=== PATIENT | male | born 1970 | race Caucasian/White ===

== ENCOUNTER 2022-12-25 09:23 | Outpatient (OUT) | payer OTHER, SELFPAY ==
[2022-12-25 10:07] LABS: Basophils Absolute Auto 0.1 10^3/uL (0.0-0.1); Basophils Percent Auto 1.3 % (0.2-2.0); Eosinophils Absolute Auto 0.4 10^3/uL (0.0-0.7); Eosinophils Percent Auto 6.3 % (0.9-7.0); Hematocrit 45.1 % (42.0-54.0); Hemoglobin 15.1 g/dL (14.0-18.0); Immature Granulocytes Abs Auto 0.01 10^3/uL (0.00-0.03); Immature Granulocytes Pct Auto 0.2 % (0.0-0.5); Lymphocytes Absolute Auto 2.2 10^3/uL (1.2-3.8); Lymphocytes Percent Auto 38.8 % (20.5-60.0); Mean Corpuscular HGB Conc 33.5 g/dL (29.9-35.2); Mean Corpuscular Hemoglobin 30.6 pg (25.9-34.0); Mean Corpuscular Volume 91.3 fL (80.0-94.0); Mean Platelet Volume 11.1 fL (9.5-13.5); Monocytes Absolute Auto 0.5 10^3/uL (0.3-0.8); Monocytes Percent Auto 9.5 % (1.7-12.0); Neutrophils Absolute Auto 2.5 10^3/uL (1.4-6.5); Neutrophils Percent Auto 43.9 % (43.0-75.0); Platelet Count 237 10^3/uL (150-450); Red Blood Count 4.94 10^6/uL (4.70-6.10); Red Cell Distribution Width 12.9 % (11.0-15.0); White Blood Count 5.6 10^3/uL (4.0-11.0)
[2022-12-25 10:17] LABS: Alanine Aminotransferase 40 U/L (16-63); Albumin Globulin Ratio 1.4; Alkaline Phosphatase 66 U/L (46-116); Aspartate Amino Transferase 21 U/L (15-37); BUN Creatinine Ratio 17.4; Bilirubin Total 0.5 mg/dL (0.2-1.0); Calcium 8.6 mg/dL (8.5-10.1); Carbon Dioxide 28.4 mmol/L (21.0-32.0); Chloride 105 mmol/L (98-107); Chol HDL Ratio 5.7; Cholesterol 264 mg/dL (<=200); Estimated GFR (African America >60 (>=60); Estimated GFR (Non-African Ame >60 (>=60); Globulin 2.9 g/dL; Glucose 97 mg/dL (74-106); HDL Cholesterol 46 mg/dL (40-60); Potassium 4.4 mmol/L (3.5-5.1); Sodium 142 mmol/L (136-145); Total Protein 6.9 g/dL (6.4-8.2); Triglycerides 106 mg/dL (<=150); VLDL CHOLESTEROL 21.2 mg/dL
[2022-12-25 10:37] LABS: Prostate Specific Antigen Scrn 0.99 ng/mL (<=4.00)
== END 2022-12-25 09:24 | disposition home or self-care (01) ==
LOC: LAB 09:27
PROVIDERS: PCP Family Medicine; Visit Provider Family Medicine
DX: Z00.00 Encounter for general adult medical examination without abnormal findings (principal); Z12.5 Encounter for screening for malignant neoplasm of prostate
CPT/HCPCS: 36415; 80053; 80061; 85025; G0103

== ENCOUNTER 2023-07-11 12:59 | Outpatient (OUT) | payer OTHER, SELFPAY ==
--- NOTE | 2023-07-11 | US_ITS ---
The [address] [address] Patient Name: YOLA HOLLAND MRN: [id number] date: 1970 Sex: M Assigned Patient Location: US Current Patient Location: Accession/Order Number: [id number] Exam Date: 07/11/2023 13:05 Report Date: 07/13/2023 12:03 At the request of: MARICARMEN LONDON Procedure: US thyroid EXAMINATION: US thyroid HISTORY: OTHER SPECIFIED DISORDERS OF THYROID E07.89 ; palpable lump COMPARISON: No relevant comparison available. FINDINGS: RIGHT LOBE: Normal size and echotexture. Lobe size: 4.4 x 1.8 x 1.8 cm LEFT LOBE: Normal size and echotexture. Lobe size: 3.9 x 1.5 1.4 cm ISTHMUS: Normal size and echotexture. Thickness: 2 mm OTHER: Within the upper anterior right neck within the subcutaneous fat is a 3.9 x 3.2 x 0.8 cm isoechoic thinly encapsulated mass without appreciable internal blood flow. US/US thyroid IMPRESSION: 1. The patient's palpable lump appears to correspond to a lipoma within the subcutaneous fat. Ultrasound-guided tissue sampling could be performed if clinically indicated. 2. Unremarkable thyroid gland. TI-RADS 1: Normal thyroid gland. No focal lesion. Electronically authenticated by: FREDRICK BYRNE Date: 07/13/2023 12:03
--- OUTSIDE RECORDS SUMMARY | 2023-07-11 13:01 | XMS_ITS | CCD ---
Author Organization [facility] Inform ion [facility] Care Team Providers Care Volunteer Manager Name Role Phone SHAIKH Jose JEAN Admitting Unavailable SHAIKH Jose JEAN Attending Unavailable DR ANDRIA SLATER Primary Care Unavailable SHAIKH Jose JEAN Consulting Unavailable Nirmal Scott Attending Unavail able Nirmal Scott Admitting Unavail able Provider, None Primary Care Unavailable Andria Slater Problems Problem Classification Problem Date Documented Da te Episodic/Chronic Other screening for suspected conditions (not mental disorders or infectious disease) (1 source) Encounter for screening for malignant neoplasm of prostate Episodic Thyroid disorders (2 sources) Mass of thyroid gland; Translations: [Other specified disorders of thyroid] 07-09-2023 Episodic Results Test Name Value Interpretation Reference Range Facil ity GLYCOHEMOGLOBIN A1Con 2021 ADA RECOMMENDATION SEE BELOW Normal [facility] Comment on above: Result Comment: ADA RECOMMENDED LIMIT 4.0 - 6.0 ADA THERAPEUTIC TARGET < 7.0 ACTION SUGGESTED > 7.0 Performed By: #### A 1C #### [facility] [address] [address] [address] Ivan Dave Glucose [Mass/Vol] 111 mg/dL Normal [facility] Comment on above: Performed By: #### A 1C #### [facility] [address] [address] [address] Ivan Dave HbA1c (Bld) [Mass fraction] 5.5 % Normal 4.5-6.2 [facility] Comment on above: Performed By: #### A 1C #### [facility] [address] [address] [address] Ivan Dave LIPID PROFILEon 12-20-2022 CHOL-HDL RATIO NORM SEE BELOW Normal [facility] Comment on above: Result Comment: 3.3 - 4.4 LOW RISK 4.4 - 7.1 AVERAGE RISK 7.1 - 11.0 MODERATE RISK >11.0 HIGH RISK Performed By: #### C MP, LIPID #### [facility] [address] [address] [address] Ivan Dave Cholesterol [Mass/Vol] 172 mg/dL Normal <=200 [facility] Comment on above: Performed By: #### C MP, LIPID #### [facility] [address] [address] [address] Ivan Dave Cholesterol in HDL [Mass/Vol] 46 mg/dL Normal 40-60 [facility] Comment on above: Performed By: #### C MP, LIPID #### [facility] [address] [address] [address] Ivan Dave Cholesterol in LDL [Mass/Vol] 104.0 mg/dL Normal [facility] Comment on above: Performed By: #### C MP, LIPID #### [facility] [address] [address] [address] Ivan Dave Cholesterol.total/Cho lesterol in HDL [Mass ratio] 3.7 {ratio} Normal [facility] Comment on above: Performed By: #### C MP, LIPID #### [facility] [address] [address] [address] Ivan Dave HDL NORMAL > or = 60 mg/dl - LOW CARDIOVASCULAR RISK <40 mg/dl - HIGH CARDIOVASCULAR RISK Normal [facility] Comment on above: Performed By: #### C MP, LIPID #### [facility] [address] [address] [address] Ivan Dave LDL CALC NORMAL SEE BELOW Normal The [facility] Comment on above: Result Comment: <100 mg/dl OPTIMAL 100 - 129 mg/dl NEAR OR ABOVE OPTIMAL 130 - 159 mg/dl BORDERLINE HIGH 160 - 189 mg/dl HIGH >190 mg/dl VERY HIGH Performed By: #### C MP, LIPID #### [facility] [address] [address] [address] Ivan Dave Triglyceride [Mass/Vol] 110 mg/dL Normal <=150 [facility] Comment on above: Performed By: #### C MP, LIPID #### [facility] [address] [place] [address] Dr. Ivan Dave VLDL CALC 22.0 mg/dL Normal [facility] Comment on above: Performed By: #### C MP, LIPID #### [facility] [address] [place] [address] Dr. Ivan Dave PROF 14(COMP METB)on 022 Albumin [Mass/Vol] 4.2 g/dL Normal 3.4-5.0 [facility] Comment on above: Performed By: #### C MP, LIPID #### [facility] [address] [place] [address] Dr. Ivan Dave Albumin/Globulin [Mass ratio] 1.4 {ratio} Normal [facility] Comment on above: Performed By: #### C MP, LIPID #### [facility] [address] [place] [address] Dr. Ivan Dave ALP [Catalytic activity/Vol] 71 U/L Normal 46-116 [facility] Comment on above: Performed By: #### C MP, LIPID #### [facility] [address] [place] [address] Dr. Ivan Dave ALT [Catalytic activity/Vol] 64 U/L Critically high 16-63 [facility] Comment on above: Performed By: #### C MP, LIPID #### [facility] [address] [place] [address] Dr. Ivan Dave Anion gap [Moles/Vol] 10.8 mmol/L Normal [facility] Comment on above: Performed By: #### C MP, LIPID #### [facility] [address] [place] [address] Dr. Ivan Dave AST [Catalytic activity/Vol] 21 U/L Normal 15-37 [facility] Comment on above: Performed By: #### C MP, LIPID #### [facility] [address] [place] [address] Dr. Ivan Dave Bilirubin [Mass/Vol] 0.5 mg/dL Normal 0.2-1.0 [facility] Comment on above: Performed By: #### C MP, LIPID #### [facility] [address] [place] [address] Dr. Ivan Dave Calcium [Mass/Vol] 9.3 mg/dL Normal 8.5-10.1 [facility] Comment on above: Performed By: #### C MP, LIPID #### [facility] [address] [place] [address] Dr. Ivan Dave Chloride [Moles/Vol] 104 mmol/L Normal 98-107 [facility] Comment on above: Performed By: #### C MP, LIPID #### [facility] [address] [place] [address] Dr. Ivan Dave CO2 [Moles/Vol] 32.3 mmol/L Critically high 21.0-32.0 [facility] Comment on above: Performed By: #### C MP, LIPID #### [facility] [address] [place] [address] Dr. Ivan Dave Creatinine [Mass/Vol] 0.89 mg/dL Normal 0.70-1.30 [facility] Comment on above: Performed By: #### C MP, LIPID #### [facility] [address] [place] [address] Dr. Ivan Dave EGFR-AF [place]LANDER >60 Normal >=60 [facility] Comment on above: Performed By: #### C MP, LIPID #### [facility] [address] [place] [address] Dr. Ivan Dave EGFR-NON AF [place]ER >60 Normal >=60 [facility] Comment on above: Performed By: #### C MP, LIPID #### [facility] [address] [place] [address] Dr. Ivan Dave Globulin (S) [Mass/Vol] 2.9 g/dL Normal [facility] Comment on above: Performed By: #### C MP, LIPID #### [facility] [address] [place] [address] Dr. Ivan Dave Glucose [Mass/Vol] 119 mg/dL Critically high 74-106 [facility] Comment on above: Performed By: #### C MP, LIPID #### [facility] [address] [address] [address] Ivan Dave Potassium [Moles/Vol] 4.1 mmol/L Normal 3.5-5.1 [facility] Comment on above: Performed By: #### C MP, LIPID #### [facility] [address] [address] [address] Ivan Dave Protein [Mass/Vol] 7.1 g/dL Normal 6.4-8.2 [facility] Comment on above: Performed By: #### C MP, LIPID #### [facility] [address] [address] [address] Ivan Dave Sodium [Moles/Vol] 143 mmol/L Normal 136-145 [facility] Comment on above: Performed By: #### C MP, LIPID #### [facility] [address] [address] [address] Ivan Dave Urea nitrogen [Mass/Vol] 18.0 mg/dL Normal 7.0-18.0 [facility] Comment on above: Performed By: #### C MP, LIPID #### [facility] [address] [place] [address] Dr. Ivan Dave Urea nitrogen/Creatinine [Mass ratio] 20.2 mg/mg Normal [facility] Comment on above: Performed By: #### C MP, LIPID #### [facility] [address] [address] [address] Ivan Dave Vital Signs Date Time Vital Sign Value Performing Clinician Facility 07-09-2023 14: Body height 167.64 cm [facility] 07-09-2023 14: Body mass index (BMI) [Ratio] 71.8 kg/m2 [facility] 07-09-2023 14: Body weight 202 kg [facility] 07-09-2023 14: Diastolic blood pressure 82 mm[Hg] [facility] 07-09-2023 14: Heart rate 89 /min [facility] 07-09-2023 14:17-0400 Systolic blood pressure 142 mm[Hg] [facility] 12-25-2022 08:30-0500 Body height 167.64 cm Andria Slater Other [employer] Other 12-25-2022 08:30-0500 Body mass index (BMI) [Ratio] 32.28 kg/m2 Andria Slater Other [employer] Other 12-25-2022 08:30-0500 Body weight 90.72 kg Andria Slater Other [employer] Other 12-25-2022 08:30-0500 Diastolic blood pressure 82 mm[Hg] Andria Slater Other [employer] Other 12-25-2022 08:30-0500 Systolic blood pressure 131 mm[Hg] Andria Slater Other [employer] Other Encounters Encounter Date Encounter Type Care Provider Facility Start: 07-09-2023 End: 07-09-2023 ambulatory [facility] Work Phone: Start: 07-09-2023 End: 07-09-2023 Patient encounter procedure [facility] Work Phone: Start: 12-25-2022 End: 12-25-2022 ambulatory Andria Slater Other [employer] Other Start: 12-25-2022 Encounter for genera l adult medical examination without abnormal findings Andria Slater [facility] Start: 12-25-2022 Initial preventive medicine new patient 40-64yrs Andria Slater [facility] Start: 12-25-2022 Telephone encounter Andria Slater [facility] Start: 03-24-2022 End: 03-24-2022 ambulatory Nirmal Li Tyler Facility:[facility] Start: 02-05-2022 Encounter for genera l adult medical examination without abnormal findings SHAIKH Jose JEAN [facility] Start: 01-28-2022 End: 01-29-2022 ambulatory LUAJIMMIE JEAN Facility:[facility] Start: 01-28-2022 End: 01-29-2022 Encounter for general adult medical examination without abnormal findings SHAIKH Jose JEAN Facility:[facility] Plan of Treatment Date Care Activity Detail Author US Thyroid gland [facility] Payers Date Payer Category Payer Unknown [id number] 1970 Unknown [id number] 1957 Private Health Insurance [id number] Social History Date Type Detail Facility Unknown if ever smoked [employer] Other Sex Assigned At Sex Assigned At Bir th [employer] Other Start: 07-09-2023 Tobacco smoking status NHIS Never smoked tobacco (finding) [facility] Start: 1970 Sex Assigned At Male F [facility] Evaluation note 12-25-2022 Note Date & Type Note Facility 12-25-2022 Evaluation note Encounter Date Diagnosis Assessment Notes Dec, Well adult exam (ICD-10 - Z00.00) We have discussed the necessity of following up with PCP regularly as well as specialists, as needed. Discussed F/U with dentistry and optometry at least yearly. Discussed all preventative measures/ cancer screenings as applicable to this patient. Emphasized the importance of a reduced fat, low carb diet to promote heart health and controlled blood sugars. Reviewed social history and ensured patient is safe within the home today. Pt denies any abuse of alcohol, nicotine, caffeine or recreational drugs. I have ensured patient is of stable mental and physical health today. We have discussed appropriate F/U schedule as well as blood work and vaccinations that apply. All questions answered and patient is sent home pleased, without concerns. Dec, Prostate cancer screening (ICD-10 - Z12.5) [employer] Other Evaluation note Note Date & Type Note Facility Evaluation note No Information [employer] Other Evaluation note Note Date & Type Note Facility Evaluation note Diagnosis Onset Date Thyroid mass of unclear etiology acute [facility] Work Phone: History general Narrative - Reported Note Date & Type Note Facility History general Narrative - Reported Type Surgical History Bilateral CTR 2020 [facility] [employer] Other Summary Purpose Family History Relationship Condition Age at Onset Recorded Date/T kaleb brother Malignant neoplasm Unknown father Heart disease Unknown Hypertension Unknown Myocardial infarction Unknown Advance Directives Advance Directive Response Recorded Date/ Time Advance Directives No July 06 2:07pm Chief Complaint and Reason for Visit Chief Complaint lump in neck Reason for Visit Thyroid mass of uncl ear etiology Additional Source Comments (unrecognized sect ion and content) No Status Records FoundNo Status Records Found INFORMATION SOURCE (unrecogn ized section and content) DATE CREATED AUTHOR 02/05/2022 [facility] DATE CREATED AUTHOR AUTHOR'S ORGANIZ ATION 03/22/2022 [facility] REASON FOR VISIT (unrecogniz ed section and content) [employer] Care Teams (unrecognized sec tion and content) Team Status: Active Member Role Status Dates Andria Slater MD Primary Care Provider Active Team Status: Inactive Member Role Status Dates Andria Slater MD Primary Care Provide r, Attending Provider Active Start: July 09, 2023 End: July 09, 2023 Goals (unrecognized section and content) Goals may be documented in a n alternate section FOR RECORDS PERTAINING TO PATIENTS WHO ARE OR HAVE BEEN ENROLLED IN A CHEMICAL DEPENDENCY/SUBSTANCEABUSE PROGRAM, SOME INFORMATION MAY BE OMITTED. This clinical summary was aggregated from multiple sources. Caution should be exercised in using it in the provision of clinical care. This summary normalizes information from multiple sources, and as a consequence, information in this document may materially change the coding, format and clinical context of patient data. In addition, data may be omitted in some cases. CLINICAL DECISIONS SHOULD BE BASED ON THE PRIMARY CLINICAL RECORDS. [employer]. provides no warranty or guarantee of the accuracy or completeness of information in this document.
== END 2023-07-11 13:00 | disposition home or self-care (01) ==
LOC: US 12:59
PROVIDERS: PCP Family Medicine; Visit Provider Family Medicine
DX: E07.89 Other specified disorders of thyroid (principal)
CPT/HCPCS: 76536

== ENCOUNTER 2023-07-23 09:28 | Outpatient (OUT) | payer OTHER, SELFPAY ==
--- NOTE | 2023-07-23 10:03 | CT_ITS ---
The [address] [address] Patient Name: YOLA HOLLAND MRN: [id number] date: 1970 Sex: M Assigned Patient Location: CT Current Patient Location: CT Accession/Order Number: [id number] Exam Date: 07/23/2023 09:55 Report Date: 07/23/2023 17:25 At the request of: MARICARMEN LONDON Procedure: CT soft tissue neck wo/w con CT soft tissue neck wo/w con, 07/23/2023 9:55 AM EDT INDICATION: Mass Of Neck R22.1 COMPARISON: There is no appropriate prior study for comparison. TECHNIQUE: CT imaging of the neck were acquired with contrast. Supplemental 2D reformatted images were generated and reviewed as needed. Dose reduction techniques were achieved by using automated exposure control and/or adjustment of mA and/or kV according to patient size and/or use of iterative reconstruction technique. FINDINGS: No abnormality of the base of skull is noted. Fat-containing subcutaneous lesion in the right side of the neck below the marker measuring 1.2 x 3.5 cm (AP, transverse) most likely consistent with a lipoma. No septal thickening or heterogeneity within this lesion is noted. The nasopharynx, oropharynx, hypopharynx and oral cavity are unremarkable. The parotids, submandibular glands are unremarkable. The larynx is unremarkable. No abnormality of paraglottic fat is noted. There is no lymph node enlargement by size criteria. No retropharyngeal lymph node is noted. The thyroid gland is homogeneous. The visualized portions of lungs are unremarkable. There is no suspicious osteolytic or osteoblastic lesion. There are minimal multilevel degenerative changes of cervical spine. CT/CT soft tissue neck wo/w con IMPRESSION: Right-sided subcutaneous fat-containing lesion below the marker most likely consistent with a lipoma. Electronically authenticated by: KERVIN ZAMAN Date: 07/23/2023 17:25
== END 2023-07-23 09:29 | disposition home or self-care (01) ==
LOC: CT 09:28
PROVIDERS: PCP Family Medicine; Visit Provider Family Medicine
DX: R22.1 Localized swelling, mass and lump, neck (principal); D17.0 Benign lipomatous neoplasm of skin and subcutaneous tissue of head, face and neck
CPT/HCPCS: 70492; Q9967

== ENCOUNTER 2023-12-15 09:52 | Outpatient (OUT) | payer OTHER, SELFPAY ==
--- OUTSIDE RECORDS SUMMARY | 2023-12-15 10:03 | XMS_ITS | CCD ---
Author Organization [facility] Care Team Providers Care Cryptographic Clerk Name Role Phone SHAIKH Jose JEAN Admitting Unavailable SHAIKH Jose JEAN Attending Unavailable DR ANDRIA SLATER Primary Care Unavailable SHAIKH Jose JEAN Consulting Unavailable Nirmal Scott Attending Unavail able Nirmal Scott Admitting Unavail able Provider, None Primary Care Unavailable Andria Slater Unavailable DO Didier Castillo Attending Provider DIDIER CASTILLO Attending Unavailable ANDRIA SLATER Referring Unavailable DIDIER CASTILLO Attending Unavailable ANDRIA SLATER Referring Unavailable Didier Castillo Attending Unavailable Didier Castillo Admitting Unavailable Problems Problem Classification Problem Date Documented Da te Episodic/Chronic Other screening for suspected conditions (not mental disorders or infectious disease) (1 source) Encounter for screening for malignant neoplasm of prostate Episodic Other skin disorders (1 source) Mass of neck; Translations: [Localized swelling, mass and lump, neck] 07-13-2023 Episodic Thyroid disorders (4 sources) Mass of thyroid gland; Translations: [Other specified disorders of thyroid] 07-09-2023 Episodic Results Test Name Value Interpretation Reference Range Facility Pathology Request for Lab Co rpon 09-29-2023 Pathology Request for Lab Charlie Normal [facility] Comment on above: Order Comment: PATHO LOGY LIPOMA SPECIMEN Result Comment: See report. Scanned copy available in EMR. PERFORMED BY: [address] [address] PATHOLOGIST BOARDING MACHINE OPERATOR DOLORES ALLISON M.D. Performed By: #### P ATH TO [facility] #### [address] GLYCOHEMOGLOBIN A1Con 2021 ADA RECOMMENDATION SEE BELOW Normal [facility] Comment on above: Result Comment: ADA RECOMMENDED LIMIT 4.0 - 6.0 ADA THERAPEUTIC TARGET < 7.0 ACTION SUGGESTED > 7.0 Performed By: #### A 1C #### [facility] [address] [place] [address] Dr. Ivan Dave Glucose [Mass/Vol] 111 mg/dL Normal [facility] Comment on above: Performed By: #### A 1C #### [facility] [address] [address] [address] Ivan Dave HbA1c (Bld) [Mass fraction] 5.5 % Normal 4.5-6.2 [facility] [place] [facility] Comment on above: Performed By: #### A 1C #### [facility] [address] [place] [address] Dr. Ivan Dave LIPID PROFILEon 01-28-2022 CHOL-HDL RATIO NORM SEE BELOW Normal [facility] Comment on above: Result Comment: 3.3 - 4.4 LOW RISK 4.4 - 7.1 AVERAGE RISK 7.1 - 11.0 MODERATE RISK >11.0 HIGH RISK Performed By: #### C MP, LIPID #### [facility] [address] [place] [address] Dr. Ivan Dave Cholesterol [Mass/Vol] 172 mg/dL Normal <=200 [facility] [place] [facility] Comment on above: Performed By: #### C MP, LIPID #### [facility] [address] [place] [address] Dr. Ivan Dave Cholesterol in HDL [Mass/Vol] 46 mg/dL Normal 40-60 [facility] [place] [facility] Comment on above: Performed By: #### C MP, LIPID #### [facility] [address] [address] [address] Ivan Dave Cholesterol in LDL [Mass/Vol] 104.0 mg/dL Normal [facility] [place] [facility] Comment on above: Performed By: #### C MP, LIPID #### [facility] [address] [place] [address] Dr. Ivan Dave Cholesterol.total/Cho lesterol in HDL [Mass ratio] 3.7 {ratio} Normal [facility] [place] [facility] Comment on above: Performed By: #### C MP, LIPID #### [facility] [address] [address] [address] Ivan Dave HDL NORMAL > or = 60 mg/dl - LOW CARDIOVASCULAR RISK <40 mg/dl - HIGH CARDIOVASCULAR RISK Normal [facility] [place] [facility] Comment on above: Performed By: #### C MP, LIPID #### [facility] [address] [address] [address] Ivan Dave LDL CALC NORMAL SEE BELOW Normal [facility] Comment on above: Result Comment: <100 mg/dl OPTIMAL 100 - 129 mg/dl NEAR OR ABOVE OPTIMAL 130 - 159 mg/dl BORDERLINE HIGH 160 - 189 mg/dl HIGH >190 mg/dl VERY HIGH Performed By: #### C MP, LIPID #### [facility] [address] [place] [address] Dr. Ivan Dave Triglyceride [Mass/Vol] 110 mg/dL Normal <=150 [facility] [place] [facility] Comment on above: Performed By: #### C MP, LIPID #### [facility] [address] [place] [address] Dr. Ivan Dave VLDL CALC 22.0 mg/dL Normal [facility] [place] [facility] Comment on above: Performed By: #### C MP, LIPID #### [facility] [address] [place] [address] Dr. Ivan Dave PROF 14(COMP METB)on 01-28- 022 Albumin [Mass/Vol] 4.2 g/dL Normal 3.4-5.0 [facility] Comment on above: Performed By: #### C MP, LIPID #### [facility] [address] [place] [address] Dr. Ivan Dave Albumin/Globulin [Mass ratio] 1.4 {ratio} Normal [facility] [place] [facility] Comment on above: Performed By: #### C MP, LIPID #### [facility] [address] [place] [address] Dr. Ivan Dave ALP [Catalytic activity/Vol] 71 U/L Normal 46-116 [facility] [place] [facility] Comment on above: Performed By: #### C MP, LIPID #### [facility] [address] [address] [address] Ivan Dave ALT [Catalytic activity/Vol] 64 U/L Critically high 16-63 [facility] [place] [facility] Comment on above: Performed By: #### C MP, LIPID #### [facility] [address] [place] [address] Dr. Ivan Dave Anion gap [Moles/Vol] 10.8 mmol/L Normal [facility] Comment on above: Performed By: #### C MP, LIPID #### [facility] [address] [place] [address] Dr. Ivan Dave AST [Catalytic activity/Vol] 21 U/L Normal 15-37 [facility] [place] [facility] Comment on above: Performed By: #### C MP, LIPID #### [facility] [address] [place] [address] Dr. Ivan Dave Bilirubin [Mass/Vol] 0.5 mg/dL Normal 0.2-1.0 [facility] [place] [facility] Comment on above: Performed By: #### C MP, LIPID #### [facility] [address] [place] [address] Dr. Ivan Dave Calcium [Mass/Vol] 9.3 mg/dL Normal 8.5-10.1 [facility] Comment on above: Performed By: #### C MP, LIPID #### [facility] [address] [place] [address] Dr. Ivan Dave Chloride [Moles/Vol] 104 mmol/L Normal 98-107 [facility] [place] [facility] Comment on above: Performed By: #### C MP, LIPID #### [facility] [address] [place] [address] Dr. Ivan Dave CO2 [Moles/Vol] 32.3 mmol/L Critically high 21.0-32.0 [facility] [place] [facility] Comment on above: Performed By: #### C MP, LIPID #### [facility] [address] [place] [address] Dr. Ivan Dave Creatinine [Mass/Vol] 0.89 mg/dL Normal 0.70-1.30 [facility] [place] [facility] Comment on above: Performed By: #### C MP, LIPID #### [facility] [address] [address] [address] Ivan Dave EGFR-AF GIBRALTARIAN >60 Normal >=60 [facility] Comment on above: Performed By: #### C MP, LIPID #### [facility] [address] [place] [address] Dr. Ivan Dave EGFR-NON AF GIBRALTARIAN >60 Normal >=60 [facility] [place] [facility] Comment on above: Performed By: #### C MP, LIPID #### [facility] [address] [address] [address] Ivan Dave Globulin (S) [Mass/Vol] 2.9 g/dL Normal [facility] [place] [facility] Comment on above: Performed By: #### C MP, LIPID #### [facility] [address] [place] [address] Dr. Ivan Dave Glucose [Mass/Vol] 119 mg/dL Critically high 74-106 [facility] Comment on above: Performed By: #### C MP, LIPID #### [facility] [address] [address] [address] Ivan Dave Potassium [Moles/Vol] 4.1 mmol/L Normal 3.5-5.1 [facility] [place] [facility] Comment on above: Performed By: #### C MP, LIPID #### [facility] [address] [place] [address] Dr. Ivan Dave Protein [Mass/Vol] 7.1 g/dL Normal 6.4-8.2 [facility] Comment on above: Performed By: #### C MP, LIPID #### [facility] [address] [place] [address] Dr. Ivan Dave Sodium [Moles/Vol] 143 mmol/L Normal 136-145 [facility] Comment on above: Performed By: #### C MP, LIPID #### [facility] [address] [place] [address] Dr. Ivan Dave Urea nitrogen [Mass/Vol] 18.0 mg/dL Normal 7.0-18.0 [facility] [place] [facility] Comment on above: Performed By: #### C MP, LIPID #### [facility] [address] [place], [place] [address] Dr. Ivan Dave Urea nitrogen/Creatinine [Mass ratio] 20.2 mg/mg Normal [facility] Comment on above: Performed By: #### C MP, LIPID #### [facility] [address] [place] [address] Dr. Ivan Dave Vital Signs Date Time Vital Sign Value Performing Clinician Facility 07-09-2023 14:17-0400 Body height 167.64 cm [facility] 07-09-2023 14:17-0400 Body mass index (BMI) [Ratio] 71.8 kg/m2 [facility] 07-09-2023 14:17-0400 Body mass index (BMI) [Ratio] 32.5 kg/m2 DO Didier Castillo Work Phone: [facility] 07-09-2023 14:17-0400 Body weight 202 kg [facility] 07-09-2023 14:17-0400 Body weight 91.62 kg DO Didier Castillo Work Phone: [facility] 07-09-2023 14:17-0400 Diastolic blood pressure 82 mm[Hg] [facility] 07-09-2023 14:17-0400 Heart rate 89 /min [facility] 07-09-2023 14:17-0400 Systolic blood pressure 142 mm[Hg] [facility] 12-25-2022 08:30-0500 Body height 167.64 cm Andria Slater Other [facility] Other 12-25-2022 08:30-0500 Body mass index (BMI) [Ratio] 32.28 kg/m2 Andria Slater Other [facility] Other 12-25-2022 08:30-0500 Body weight 90.72 kg Andria Slater Other [facility] Other 12-25-2022 08:30-0500 Diastolic blood pressure 82 mm[Hg] Andria Slater Other [facility] Other 12-25-2022 08:30-0500 Systolic blood pressure 131 mm[Hg] Andria Slater Other [facility] Other Encounters Encounter Date Encounter Type Care Provider Facility Start: 10-05-2023 End: 10-05-2023 ambulatory DIDIER CASTILLO Not Available Start: 09-29-2023 End: 09-29-2023 ambulatory Didier Castillo [facility] Work Phone: Start: 09-29-2023 End: 09-29-2023 Departed Referred DO Didier Castillo Work Phone: [facility] [place] Work Phone: Start: 09-04-2023 End: 09-04-2023 ambulatory DIDIER CASTILLO Not Available Start: 07-09-2023 End: 07-09-2023 ambulatory [facility] Work Phone: Start: 07-09-2023 End: 07-09-2023 Patient encounter procedure [facility] Work Phone: Start: 12-25-2022 End: 12-25-2022 ambulatory Andria Slater Other [facility] Other Start: 12-25-2022 Encounter for genera l adult medical examination without abnormal findings Andria Slater [facility] Start: 12-25-2022 Initial preventive medicine new patient 40-64yrs Andria Slater [facility] Start: 12-25-2022 Telephone encounter Andria Slater [facility] Start: 03-24-2022 End: 03-24-2022 ambulatory Nirmal Li [place] Facility:[facility] Start: 02-05-2022 Encounter for genera l adult medical examination without abnormal findings SHAIKH Jose JEAN [facility] [place] [facility] Start: 01-28-2022 End: 01-29-2022 ambulatory SHAIKH Jose JEAN Facility: Start: 01-28-2022 End: 01-29-2022 Encounter for general adult medical examination without abnormal findings SHAIKH Jose JEAN Facility:[facility]1 Plan of Treatment Date Care Activity Detail Author US Thyroid gland [facility] Payers Date Payer Category Payer Self-pay 1970 Unknown [id number] 1972 Unknown [id number] 1972 Unknown [id number] 1972 Unknown [id number] 1959 Private Health Insurance [id number] Unknown [id number] Social History Date Type Detail Facility Unknown if ever smoked [facility] Other Sex Assigned At Sex Assigned At Bir th [facility] Other Start: 07-09-2023 Tobacco smoking status NHIS Never smoked tobacco (finding) [facility] Start: 1970 Sex Assigned At Male F [facility] Evaluation note 12-25-2022 Note Date & [...] Dec, Prostate cancer screening (ICD-10 - Z12.5) [place] [facility] Other Evaluation note Note Date & Type Note Facility Evaluation note No Information [facility] Other Evaluation note Note Date & Type Note Facility Evaluation note Diagnosis Onset Date Thyroid mass of unclear etiology acute [facility] Work Phone: History general Narrative - Reported Note Date & Type Note Facility History general Narrative - Reported Type Surgical History Bilateral CTR 2020 [facility] Other Summary Purpose Family History No Family History Records Found Relationship Condition Age at Onset Recorded Date/T kaleb brother Malignant neoplasm Unknown father Heart disease Unknown Hypertension Unknown Myocardial infarction Unknown Advance Directives No Advanced Directives Records Found Advance Directive Response Recorded Date/ Time Advance Directives No July 06 2:07pm Chief Complaint and Reason for Visit Chief Complaint lump in neck Reason for Visit Thyroid mass of uncl ear etiology Additional Source Comments (unrecognized sect ion and content) No Status Records FoundNo Status Records FoundNo Status Records FoundNo Status Records Found INFORMATION SOURCE (unrecogn ized section and content) DATE CREATED AUTHOR 02/05/2022 [facility] DATE CREATED AUTHOR AUTHOR'S ORGANIZ ATION 03/22/2022 [facility] DATE CREATED AUTHOR AUTHOR'S ORGANIZ ATION 10/06/2023 [facility] EPIC DATE CREATED AUTHOR AUTHOR'S ORGANIZ ATION 10/08/2023 [facility] REASON FOR VISIT (unrecogniz ed section and content) [facility] Care Teams (unrecognized sec tion and content) Team Status: Active Member Role Status Dates Andria Slater MD Primary Care Provider Active Team Status: Inactive Member Role Status Dates Andria Slater MD Primary Care Provide r, Attending Provider Active Start: July 09, 2023 End: July 09, 2023 Team Status: Inactive Member Role Status Dates Didier Castillo DO Attending Provider Active S tart: September 29, 2023 End: September 29, 2023 Goals (unrecognized section and content) Goals [...] BE BASED ON THE PRIMARY CLINICAL RECORDS. [facility] [employer] [facility]. provides no warranty or guarantee of the accuracy or completeness of information in this document.
[2023-12-15 11:12] LABS: Anion Gap 13.2; BUN Creatinine Ratio 11.7; Calcium 9.4 mg/dL (8.5-10.1); Carbon Dioxide 28.4 mmol/L (21.0-32.0); Chloride 105 mmol/L (98-107); Chol HDL Ratio 5.9; Cholesterol 277 mg/dL (<=200); Estimated GFR (African America >60 (>=60 mL/min/1.73m^2); Estimated GFR (Non-African Ame >60 (>=60 mL/min/1.73m^2); Glucose 104 mg/dL (74-106); HDL Cholesterol 47 mg/dL (40-60); Potassium 4.6 mmol/L (3.5-5.1); Sodium 142 mmol/L (136-145); Triglycerides 153 mg/dL (<=150); VLDL CHOLESTEROL 30.6 mg/dL
== END 2023-12-15 09:53 | disposition home or self-care (01) ==
LOC: LAB 09:53
PROVIDERS: PCP Family Medicine; Visit Provider Family Medicine
DX: Z00.00 Encounter for general adult medical examination without abnormal findings (principal)
CPT/HCPCS: 36415; 80048; 80061; G0103

== ENCOUNTER 2024-12-20 11:14 | Outpatient (OUT) | payer OTHER, SELFPAY ==
--- OUTSIDE RECORDS SUMMARY | 2024-12-20 06:01 | XMS_ITS | Continuity of Care Document ---
Author Organization [facility] Address [address] [place] [address] Phone Care Team Providers Care Customer Service Technician Name Role Phone Andria Slater MD Primary Care Provider Andria Slater MD Attending Provider [phone] Care Teams Patient Care Team Team Status: Active Member Role/Relationship Status Dates Andria Slater MD Primary Care Provider Active Patient Care Team Team Status: Inactive Member Role/Relationship Status Dates Andria Slater MD Primary Care Provider Active Start: December 20, 2024 End: December 20, 2024Andria Slater MDAttending ProviderActiveStart: December 20, 2024 End: December 20, 2024 Chief Complaint and Reason for Visit Chief Complaint Admit Date Wellness December 20, 2024 10:21am Reason for Visit Admit Date Screening PSA (prostate specific antigen ) December 20, 2024 10:21am Wellness examination December 20, 2024 10:21am Allergies, Adverse Reactions, Alerts Allergen Type Severity Reaction Last Updated Verified Status No Known Allergies Allergy Unknown December 20, 2024 10:34amYesActive Social History Smoking Status Status Start Date End Date Date of Observa tion Never smoked tobacco (finding) July 09, 2023 2:22pm Observation Status Observation Response Date of Response Legal Sex Male (finding) Sex Assigned At BirtheA1970 Family History Relationship Condition Age at Onset Recorded Date/T kaleb brother Malignant neoplasm Unknown fatherHeart diseaseUnknownHypertensionUnknownMyocardial infarctionUnknown Problems Active Problems Problem Diagnosis/Recorded Date Onset Date Stat us Screening PSA (prostate spec ific antigen) December 20, 2024 10:51am Unknown Active CIERA (obstructive sleep apnea) 2023 8:59am Unknown Active Mass in neck July 13, 2023 12:14pm Unknown Activ e Dyslipidemia December 17, 2023 8:28am Unknown Ac tive Wellness examination December 15, 2023 9:42am Unknown Active Thyroid mass of unclear etiology July 09, 2023 1:38pm Unknown Active Contact dermatitis December 16, 2023 1:38pm Unknown Active Medications No known medications Vital Signs Vital Reading Result Reference Range Collection Date/Time Height 66 [in_i] December 20, 2024 10:36rjTvhfrw34.35 kgDecember 20, 2024 10:34amHeart Rate74 /abt35-011ZahgqpbjDecember 20, 2024 10:38amBP Ekndhpzo265 mm[Hg]100-140December 20, 2024 10:38amBP Bxzxdyclv46 mm[Hg]60-100December 20, 2024 10:38amBMI (Body Mass Index)31.8 kg/q3CjduxjfyDecember 20, 2024 10:34am Advance Directives Advance Directive Response Recorded Date/ Time Advance Directives No July 06 1:07pm Insurance Providers Guarantor [place] Address [address] [facility] [address]Imzjpnp Info.Home Phone: Payer Group Member ID Coverage Type Subscriber Relationship to Subscriber Effective Date Expiration Date [facility] [id number] Strecker Id: [id number] [address] [facility] [address] Home Phone: Email: [email or web address] Encounters Encounter Location(s) Arrival/Admit Date Discharge/Departure Date Discharge/Departure Disposition Provider(s) Departed Physician/ Provider Office Visit -[facility] December 20, 2024 10:21am December 20, 2024 10:56am Discharged to home care or self care (routine discharge) Andria Slater MD Recent Diagnosis Onset Date Admit Date Screening PSA (prostate specific antigen) Unknow n December 20, 2024 10:21am Wellness examination Unknown December 202024 10:21am Assessments Diagnosis Onset Date Resolution Status Admit Date Screening PSA (prostate specific antigen ) acuteDecember 20 2025 [facility] Plan of Treatment Future Tests Future scheduled test information is unavailable Pending Tests Pending diagnostic test information is unavailable Future Visits Future appointment information is unavailable Future Procedures Procedure Name Ordered Date Scheduled Date Glucose December 20, 2024 10:50am [facility] 10:50amPSA Screen (Yearly Only)December 20, 2024 10:50am Future Medications Future medication information is unavailable Patient Instructions Patient instructions are unavailable
--- OUTSIDE RECORDS SUMMARY | 2024-12-20 11:19 | XMS_ITS | Clinical Summary ---
Author Organization [facility] Address [address] [place] [address] Care Team Providers Care Finisher Fine Diamond Dies Name Role Phone Andria Slater MD Primary Care Provider [phone] Didier Alcala DO Unavailable [phone] Allergies No known active allergies Medications No known medications Resolved Problems ProblemNoted DateDiagnosed DateResolved DateCarpal tunnel syndrome on both sides /arpal tunnel syndrome, left/arpal tunnel syndrome, right09/01//Thyroid mass of unclear etiology Social History Tobacco UseTypesPacks/DayYears UsedDateSmoking Tobacco: FormerCigarettes Smokeless Tobacco: Never Tobacco Cessation:Counseling Given: Not Answered Comments:Quit in 1999 Alcohol UseStandard Drinks/WeekCommentsNot Currently0 (1 standard drink = 0.6 oz pure alcohol)Sex and Gender InformationValueDate RecordedSex Assigned at Not on fileLegal FyaIhve6604/23/2022 7:12 PM EDTGender IdentityNot on fileSexual OrientationNot on file Last Filed Vital Signs Vital SignReadingTime TakenCommentsBlood Pressure--Pulse--Temperature-- Respiratory Rate--Oxygen Saturation--Inhaled Oxygen Concentration--Yknyxf26.9 kg (185 lb)10/05/2023 9:05 AM DWJOrevca743.6 cm (5' 6 )10/05/2023 9:05 AM EDTBody Mass Index29.8610/05/2023 9:05 AM EDT Plan of Treatment Not on file Insurance Care Teams Team MemberRelationshipSpecialtyStart DateEnd Date Andria Slater MD PCP - GeneralFamily Medicine07/14/23 Didier Alcala DO [address] [place] [address] Otolaryngology09/04/23
--- OUTSIDE RECORDS SUMMARY | 2024-12-20 11:23 | XMS_ITS | CCD ---
Author Organization [facility] Care Team Providers Care Senior Financial Consultant Name Role Phone SHAIKH Jose JEAN Admitting Unavailable SHAIKH Jose JEAN Attending Unavailable DR ANDRIA LONDON Primary Care Unavailable SHAIKH Jose JEAN Consulting Unavailable Nirmal Scott Attending Unavail able Nirmal Scott Admitting Unavail able Provider, None Primary Care Unavailable Andria London Unavailable DO Didier Castillo Attending Provider [phone] DIDIER CASTILLO Attending Unavailable ANDRIA LONDON Referring Unavailable DIDIER CASTILLO Attending Unavailable ANDRIA LONDON Referring Unavailable Didier Castillo Attending Unavailable Didier Castillo Admitting Unavailable Andria London MD Primary Care Provider [phone] Didier Castillo DO Unavailable Problems Active Problems Problem ClassificationProblemDateDocumented DateEpisodic/ChronicOther screening for suspected conditions (not mental disorders or infectious disease) (1 source)Encounter for screening for malignant neoplasm of prostateEpisodic Past or Other Problems Problem ClassificationProblemDateDocumented DateEpisodic/ChronicOther nervous system disorders (5 sources)Bilateral carpal tunnel syndrome; Translations: [Carpal tunnel syndrome, bilateral upper limbs]Onset: 09-02-2023 Resolved: [id number] nervous system disorders (5 sources)Carpal tunnel syndrome of left wrist; Translations: [Carpal tunnel syndrome, left upper limb]Onset: 09-02-2023 Resolved: 094695-82-8322NczlpoaChhbk nervous system disorders (5 sources)Carpal tunnel syndrome of right wrist; Translations: [Carpal tunnel syndrome, right upper limb]Onset: 09-02-2023 Resolved: 998361-87-2578PnxnxgzWfixo skin disorders (4 sources)Mass of neck; Translations: [Localized swelling, mass and lump, neck] 36-33-6375GaqtwzugHastynu disorders (9 sources)Mass of thyroid gland; Translations: [Other specified disorders of thyroid]Onset: 09-02-2023 Resolved: 052295-46-5769Pshmdast Results Test NameValueInterpretationReference RangeFacilityPATHOLOGY REQUEST FOR LAB CORPon [id number] REQUEST FOR LAB CORPNOMT HealthcareComment on above: See report. Scanned copy available in EMR.PATHOLOGY LIPOMA SPECIMENFIRClarion Psychiatric CenterPathology Request for Lab Corpon [id number] Request for Lab CorpNoCarolinaEast Medical Center Physician GroupComment on above:Order Comment: PATHOLOGY LIPOMA SPECIMENResult Comment: See report. Scanned copy available in EMR. PERFORMED BY: [place] [address] PATHOLOGIST EMERGENCY MEDICAL TECH DOLORES ALLISON M.D.Performed By: #### PATH TO [facility] #### [place] [address] USAGLYCOHEMOGLOBIN A1Con 35-79-5058AAX RECOMMENDATIONSEE [facility] Medical CenterComment on above:Result Comment: ADA RECOMMENDED LIMIT 4.0 - 6.0 ADA THERAPEUTIC TARGET < 7.0 ACTION SUGGESTED > 7.0Performed By: #### A1C #### [facility] [address] [place] [address] Dr. Ivan DaveGlucose [Mass/Vol]111 mg/dLCincinnati Shriners HospitalComment on above:Performed By: #### A1C #### [facility] [address] [place] [address] Dr. Ivan DaveHbA1c (Bld) [Mass fraction]5.5 %Normal4.5-6.2White HospitalComment on above:Performed By: #### A1C #### [facility] [address] [place] [address] Dr. Ivan KoehlerID PROFILEon 25-28-9090PFPC-HDL RATIO NORMSKettering Health PrebleComment on above:Result Comment: 3.3 - 4.4 LOW RISK 4.4 - 7.1 AVERAGE RISK 7.1 - 11.0 MODERATE RISK >11.0 HIGH RISKPerformed By: #### CMP, LIPID #### [facility] [address] [place] [address] Dr. Ivan DaveCholesterol [Mass/Vol]172 mg/dLNormal<=200[facility] Comment on above:Performed By: #### CMP, LIPID #### [facility] [address] [place] [address] Dr. Ivan DaveCholesterol in HDL [Mass/Vol]46 mg/pJQyqjhw21-91MzgWhite HospitalComment on above:Performed By: #### CMP, LIPID #### [facility] [address] [place] [address] Dr. Ivan DaveCholesterol in LDL [Mass/Vol]104.0 mg/dLCincinnati Shriners HospitalComment on above:Performed By: #### CMP, LIPID #### [facility] [address] [place] [address] Dr. Ivan Agostoesternohemy.total/Cholesterol in HDL [Mass ratio]3.7 {ratio} NormalWhite HospitalComment on above:Performed By: #### CMP, LIPID #### [facility] [address] [place] [address] Dr. Ivan Amos NORMAL> or = 60 mg/dl - LOW CARDIOVASCULAR RISK <40 mg/dl - HIGH CARDIOVASCULAR RISKCincinnati Shriners HospitalComment on above:Performed By: #### CMP, LIPID #### [facility] [address] [place] [address] Dr. Ivan DaveLDL CALC NORMALSEE [facility] Medical CenterComment on above:Result Comment: <100 mg/dl OPTIMAL 100 - 129 mg/dl NEAR OR ABOVE OPTIMAL 130 - 159 mg/dl BORDERLINE HIGH 160 - 189 mg/dl HIGH >190 mg/dl VERY HIGH Performed By: #### CMP, LIPID #### [facility] [address] [address] [address] Ivan DaveTriglyceride [Mass/Vol]110 mg/dLNormal<=150The [facility] Comment on above:Performed By: #### CMP, LIPID #### [facility] [address] [address] [address] Ivan DaveVLDL CALC22.0 mg/dLNormalThe [facility] ColumbusComment on above: Performed By: #### CMP, LIPID #### [facility] [address] [address] [address] Ivan DavePROF 14(COMP METB)on 18-23-9680Hnvgcap [Mass/Vol]4.2 g/dLNormal 3.4-5.0The [facility] ColumbusComment on above:Performed By: #### CMP, LIPID #### [facility] [address] [place] [address] Dr. Ivan DaveAlbumin/Globulin [Mass ratio]1.4 {ratio}NormalThe [facility] ColumbusComment on above:Performed By: #### CMP, LIPID #### [facility] [address] [address] [address] Ivan Leblanc [Catalytic activity/Vol]71 U/AMxmlzu79-601Ekl [facility] ColumbusComment on above:Performed By: #### CMP, LIPID #### [facility] [address] [address] [address] Ivan Parish [Catalytic activity/Vol]64 U/LCritically waqi78-06Xzp [facility] ColumbusComment on above:Performed By: #### CMP, LIPID #### [facility] [address] [address] [address] Ivan William gap [Moles/Vol]10.8 mmol/LNormalThe [facility] Comment on above:Performed By: #### CMP, LIPID #### [facility] [address] [address] [address] Ivan Stacy [Catalytic activity/Vol]21 U/YUshewn15-42Fxq [facility] ColumbusComment on above:Performed By: #### CMP, LIPID #### [facility] [address] [address] [address] Ivan DaveBilirubin [Mass/Vol]0.5 mg/dLNormal0.2-1.0The [facility] Comment on above:Performed By: #### CMP, LIPID #### [facility] [address] [address] [address] Ivan DaveCalcium [Mass/Vol]9.3 mg/dLNormal8.5-10.1The [facility] Comment on above:Performed By: #### CMP, LIPID #### [facility] [address] [address] [address] Ivan DaveChloride [Moles/Vol]104 mmol/AStogem07-166Tzo [facility] Comment on above:Performed By: #### CMP, LIPID #### [facility] [address] [place] [address] Dr. Ivan DaveCO2 [Moles/Vol]32.3 mmol/LCritically high21.0-32.0The [facility] ColumbusComment on above:Performed By: #### CMP, LIPID #### [facility] [address] [place] [address] Dr. Ivan DaveCreatinine [Mass/Vol]0.89 mg/dLNormal0.70-1.30The [facility] ColumbusComment on above:Performed By: #### CMP, LIPID #### [facility] [address] [place] [address] Dr. Ivan MolinaGFR-AF QATARI>60Normal>=60The [facility] ColumbusComment on above:Performed By: #### CMP, LIPID #### [facility] [address] [address] [address] Ivan Matos-NON AF QATARI>60Normal>=60The [facility] ColumbusComment on above:Performed By: #### CMP, LIPID #### [facility] [address] [place] [address] Dr. Ivan DaveGlobulin (S) [Mass/Vol]2.9 g/dLNormalThe [facility] ColumbusComment on above:Performed By: #### CMP, LIPID #### [facility] [address] [address] [address] Ivan DaveGlucose [Mass/Vol]119 mg/dLCritically nsgy68-013Smp [facility] ColumbusComment on above:Performed By: #### CMP, LIPID #### [facility] [address] [place] [address] Dr. Ivan DavePotassium [Moles/Vol]4.1 mmol/LNormal3.5-5.1The [facility] Comment on above:Performed By: #### CMP, LIPID #### [facility] [address] [place] [address] Dr. Ivan DaveProtein [Mass/Vol]7.1 g/dLNormal6.4-8.2[facility] Comment on above:Performed By: #### CMP, LIPID #### [facility] [address] [place] [address] Dr. Ivan DaveSodium [Moles/Vol]143 mmol/SBoweic086-509Kva [facility] Comment on above:Performed By: #### CMP, LIPID #### [facility] [address] [address] [address] Ivan DaveUrea nitrogen [Mass/Vol]18.0 mg/dLNormal7.0-18.0The [facility] ColumbusComment on above:Performed By: #### CMP, LIPID #### [facility] [address] [place] [address] Dr. Ivan DaveUrea nitrogen/Creatinine [Mass ratio]20.2 mg/mgNoSelect Medical Specialty Hospital - Cincinnati NorthComment on above:Performed By: #### CMP, LIPID #### [facility] [address] [place] [address] Dr. Ivan Dave Vital Signs Date TimeVital SignValuePerforming YoczqdmlsDmexfsah21-32-9595 09:05-0400Body ysddgx826.6 Yovany Castillo DO Work Phone: [facility] InstituteScxwixelpo06-94-2148 09:05-0400Body mass index (BMI) [Ratio]29.86 kg/m2Paul Biedensalvador DO Work Phone: [facility] InstituteQigxmdwkel31-73-6837 09:05-0400Body deqpke82.92 kgPaul Biedenbach DO Work Phone: [facility] InstituteVpbbfxhyhz04-90-9699 14:17-0400Body mmpfov356.64 cmSelect [facility]05-30-2024 14:17-0400Body mass index (BMI) [Ratio]71.8 kg/i1JfpohqwlfSelect Medical [facility] [place]05-30-2024 14:17-0400Body mass index (BMI) [Ratio]32.5 kg/m2DO Didier Castillo Work Phone: [facility]05-30-2024 14:17-0400 Body liutau855 kgSelect Medical [facility] [place]05-30-2024 14:17-0400Body ngsoma84.62 kgDO Didier Castillo Work Phone: [phone] [place], [place] [address]05-30-2024 14:17-0400 Diastolic blood obhmqhgf05 mm[Hg][facility]05-30-2024 14:17-0400Heart rate89 /minSelect Medical [facility] Clinic [facility] [place]05-30-2024 14:17-0400Systolic blood ohcvwapw457 mm[Hg][facility] 12-25-2022 08:30-0500Body axhbef275.64 cmAndria London Other [employer] Other 11-16-2023 08:30-0500Body mass index (BMI) [Ratio] 32.28 kg/x9DiqhjqAndria London Other [employer] Other 11-16-2023 08:30-0500Body mwsobh60.72 kgAndria London Other [employer] Other 11-16-2023 08:30-0500Diastolic blood levlygxj74 mm[Hg] Andria London Other [employer] Other 224266-92-3557 08:30-0500Systolic blood xbndzkuo086 mm[Hg] Andria Bryon Other [facility] [employer] Other Encounters Encounter DateEncounter TypeCare ProviderFacilityStart: 10-05-2023 End: 30-49-8778Knplen flowsheetPaul S Biedenbach DO Work Phone: [facility] SANDUSKYStart: 10-05-2023 End: 98-54-3029Hypjkr flowsheetPaul S Biedenbach DO Work Phone: [facility] SANDUSKYStart: 10-05-2023 End: 64-94-5705twsqgifjqoFEJU S BIEDENBACHNot AvailableStart: 10-05-2023 End: 49-93-7386Kfwhqh follow up visit related to original pxPaul S Biedenbach DO Work Phone: [facility] E[facility] SANDUSKYComment on above:Neck mass (Primary Dx)Start: 09-29-2023 End: 71-71-1782Qlpbxgwh Result EncounterPaul S Biedenbach DO Work Phone: n[facility] External Department UnsolicitedStart: 09-29-2023 End: 87-69-5486Xkxorgex Result EncounterPaul S Biedenbach DO Work Phone: n[facility] External Department UnsolicitedStart: 09-29-2023 End: 58-84-7912mtltlowmlgRjet [facility]eT[facility] Work Phone: Start: 09-29-2023 End: 68-24-4744Ysabntkv ReferredDO Didier Castillo Work Phone: [facility] [place] Work Phone: Start: 09-29-2023 End: 61-44-5837Okimkvy encounter procedurePaul S Biedenbach DO Work Phone: [facility] EXT DEPComment on above:Neck mass (Primary Dx) Start: 09-04-2023 End: 51-25-8713jhibqglbtoMGXK Candie Trish AvailableStart: 07-09-2023 End: 13-49-2881bqpphbjcqbCwqwgmwtqUK [facility] Work Phone: Start: 07-09-2023 End: 02-84-0478Gbhurbc encounter procedureCrawley Memorial [facility] Work Phone: Start: 12-25-2022 End: 23-30-4070xpmamzflbzRdibmu Braun Other [facility] [employer] Other Start: 98-45-5606Faohbxwkb for general adult medical examination without abnormal findingsMission Community Hospital ClinicStart: 83-90-7077Qqvonfq preventive medicine new patient 40-64yrsMarcia [facility] ClinicStart: 44-61-1205Uikfifibz encounterMission Community Hospital ClinicStart: 03-24-2022 End: 57-68-9702hwxqdvdjcbFxbngAmarjit ScottFacility:[facility] HospitalStart: 99-16-0668Jdrynyieu for general adult medical examination without abnormal findingsSHAIKH Jose Garciaevue HospitalStart: 01-28-2022 End: 60-99-9265wsqkqekxmxNCCYJJ H FAWWADFacility:B3Qnbdk: 01-28-2022 End: 37-78-2778Ftvrccqgl for general adult medical examination without abnormal findingsSHAIKH Jose PERALESWWADFacility:H1 Procedures DateProcedureProcedure DetailPerforming ClinicianStart: 91-49-5600NQRNSLRNJ REQUEST FOR LAB CORPDidier Castillo DO Work Phone: Plan of Treatment DateCare ActivityDetailAuthorStart: 21-41-3089Hhcstvabz for malignant neoplasm of colonNOMS HealthcareStart: 49-93-2986Fysnsldvj vaccinationInfluenza Vaccine (#1)[facility] HealthcareStart: 10-05-2023 End: 07-68-6252Nqunjzn encounter kflwiqnse97/26/2024 9:00 AM EDT Office Visit [place] [place] [address] [place] [address] Didier Castillo, DO [address] [place] [address] NOMCandie PIMENTELYStart: 19-76-4638Vhhvakliq for malignant neoplasm of colonNOMS HealthcareUS Thyroid glandSelect Medical [facility] Payers DatePayer CategoryPayerPolicy [id number] Health InsuranceUNUNIVERSITY H[facility]PITALS ST. [facility] SUREST [id number] 2023-Present [address] [place], [place] [id number] 2..[id number] [id number] 2.840.1.554120.3.579.2.615609-85-8433Xcevhke Health [id number] [id number] [id number] Social History DateTypeDetailFacilityUnknown if ever smokedNoG[employer] Other Start: 09-04-2023 End: 71-34-8821Jrq Assigned At [facility] [employer] Other Start: 30-91-3794Dszyqbk smoking status NHISNever smoked tobacco (finding)[facility] CenterStart: 90-98-1293Tim Assigned At BirthHolzer Hospitaltart: 22-47-4495Mpkwwrq smoking status NHISEx-smokerNOMS HealthcareHistory of tobacco useCurrent smoker N[facility] HealthcareHistory of tobacco useCigarette SmokerNOMS HealthcareStart: 58-66-4188Iykpaml use and exposureSmokeless tobacco non-userNOMS Healthcare Start: 09-04-2023 End: 83-54-5110Loikexepi beverage intakeEx-drinker (finding)[facility] Start: 09-04-2023 End: 07-96-4563Cbbzcym of Social functionNOMS HealthcareStart: 63-77-0381Ekqkmov CommentQuit in 2000NOMT HealthcareStart: 62-61-2033Fvu assigned at birthNot on fileNOMT Healthcare History of Present illness Narrative 10-05-2023 Note Date & MrfwSuiuIieajcht56-56-0730 History of Present illness Narrative* Didier Castillo DO - 10/05/2023 9:00 AM EDT Subjective Patient ID: Shaggy Nj is a 53 y.o. male who presents for Post-op HPI This patient presents postop excision of anterior neck mass. Review of Systems Patient recently underwent excision of anterior neck lipoma. States to be doing well. Minimal discomfort. Objective ENT Physical Exam The area of his incision is healing up very nicely. Sutures are removed without difficulty. Final pathology is pending. Assessment/Plan Diagnoses and all orders for this visit: Neck mass Comments: Follow-up as needed, will contact the patient if pathology is not consistent with benign disease documented in this encounterNOMT Healthcare History of Present illness Narrative 09-29-2023 Note Date & LfhrSenjCjfrltjn03-88-3593 History of Present illness Narrative* Didier Castillo DO - 09/29/2023 10:00 AM EDT Subjective Patient ID: Shaggy Nj is a 52 y.o. male who presents for No chief complaint on file. HPI This patient presents for excision of anterior neck mass. Review of Systems Patient has a history of enlarging neck mass on the right side with mild pressure symptoms. Outpatient ultrasound is suggestive of lipoma. The rest of his review of systems is unchanged. Objective ENT Physical Exam Excision of lipoma of the anterior neck on the right side completed. Assessment/Plan Diagnoses and all orders for this visit: Neck mass Comments: Lipoma removed without difficulty, follow up in the office as scheduled [facility] Evaluation note 12-25-2022 Note Date & IyecDepkWjkaodrl75-10-6097 Evaluation note* Encounter Date Diagnosis Assessment Notes Treatment Notes Treatment Clinical Notes Dec, Well adult exam (ICD-10 - Z00.00 ) We have discussed the necessity of following [...] vaccinations that apply. All questions answered and p atient is sent home pleased, without concerns. Dec,rostate cancer screening (ICD-10 - Z12.5) [employer] Other Evaluation note Note Date & TypeNoteFacilityEvaluation noteNo InformationNort [employer] Other Evaluation note Note Date & TypeNoteFacilityEvaluation note* Diagnosis Onset Date Resolution Status Thyroid mass of unclear etiology [facility] Work Phone: Evaluation note Note Date & TypeNoteFacilityEvaluation note* Diagnosis Neck mass- Primary Swelling, mass, or lump in head and neck documented in this encounter [facility] Evaluation note Note Date & TypeNoteFacilityEvaluation note* Diagnosis Neck mass- Primary Swelling, mass, or lump in head and neck documented in this encounter [facility] History general Narrative - Reported Note Date & TypeNoteFacilityHistory general Narrative - Reported* Type Description Date Surgical History Bilateral CTR 2020 [employer] Other Summary Purpose Family History Relationship Condition Age at Onset Recorded Date/T kaleb brother Malignant neoplasm Unknown fatherHeart diseaseUnknownHypertensionUnknownMyocardial infarctionUnknown Advance Directives Advance Directive Response Recorded Date/ [...] section and content) DATE CREATED AUTHOR 02/05/2022 [facility] DATE CREATED AUTHOR AUTHOR'S ORGANIZ ATION 03/22/2022 [facility] DATE CREATED AUTHOR AUTHOR'S ORGANIZ ATION 10/06/2023 [facility] DATE CREATED AUTHOR AUTHOR'S ORGANIZ ATION 10/08/2023 [facility] REASON FOR VISIT (unrecogniz ed section and content) ReasonCommentsPost-op Care Teams (unrecognized sec tion and content) Team Status: Active Member Role Status Dates Andria London MD Primary Care Provider Active Team Status: Inactive Member Role Status Dates Andria London MD Primary Care Provide r, Attending Provider Active Start: July 09, 2023 End: July 09, 2023 Team Status: Inactive Member Role Status Dates Didier Castillo DO Attending Provider Active S tart: September 29, 2023 End: September 29, 2023Team MemberRelationshipSpecialtyStart DateEnd Date Andria London MD [address] [place] [id number] PCP - GeneralFamily Medicine07/14/23 Didier Castillo DO [address] [place] [address] Otolaryngology09/04/23Team MemberRelationshipSpecialtyStart DateEnd Date Andria London MD [address] [place] [address] PCP - GeneralFamily Medicine07/14/23 Didier Castillo DO [address] [place] [place] [address] Otolaryngology09/04/23 Goals (unrecognized section and content) Goals may [...] BE BASED ON THE PRIMARY CLINICAL RECORDS. [employer] provides no warranty or guarantee of the accuracy or completeness of information in this document.
[2024-12-20 12:01] LABS: Cholesterol 242 mg/dL (<=200); Glucose 102 mg/dL (74-106); HDL Cholesterol 52 mg/dL (40-60); Triglycerides 106 mg/dL (<=150); VLDL CHOLESTEROL 21.2 mg/dL
== END 2024-12-20 11:15 | disposition home or self-care (01) ==
LOC: LAB 11:16
PROVIDERS: PCP Family Medicine; Visit Provider Family Medicine
DX: Z00.00 Encounter for general adult medical examination without abnormal findings (principal); Z12.5 Encounter for screening for malignant neoplasm of prostate
CPT/HCPCS: 36415; 80061; 82947; G0103